=== PATIENT | female | born 1950 | race African-American/Black ===

== ENCOUNTER 2016-10-02 10:34 | Inpatient (IN) ==
--- NOTE | 2016-10-02 11:20 | Emergency Department Note ---
Arrival - Arrival Chief Complaint: Non-Specific Stated Complaint: BLOOD TOO THIN ED Nursing Triage Note: pt states that she had blood drawn yesterday at [facility] and was told that blood was too thin and to come to er Mode of Arrival: Wheelchair Limitations: No Limitations Source: Patient, Family Time Seen by Provider: 10/02/16 10:56 - History of Present Illness HPI Narrative: This is a 66-year-old black female who states that she had blood drawn yesterday at [facility] and was told that her blood was too thin. Patient takes Coumadin and her last dose was this last Saturday night. She is been on increased dose for 1 week of Coumadin because her INR was too high. Patient has been diagnosed with Mycobacterium avium and is currently on 6 different antibiotics for that. Onset (ago): day(s) (1) Allergies/Adverse Reactions: Allergies Allergy/AdvReac Type Severity Reaction Status Date / Time No Known Allergies Allergy Verified 09/12/14 10:02 Home Medications: Home Medications Medication Instructions Recorded Confirmed Type Cilostazol [Pletal] 100 mg PO BID 09/12/14 10/02/16 History Ergocalciferol (Vitamin D2) 50,000 unit PO FR 09/12/14 10/02/16 History [Vitamin D2] Gabapentin Cap/Tab [Neurontin 300 mg PO TID 09/12/14 10/02/16 History Cap/Tab] Meloxicam [Mobic] 7.5 mg PO DAILY 09/12/14 10/02/16 History Omeprazole [Prilosec] 20 mg PO DAILY 09/12/14 10/02/16 History levETIRAcetam TAB [Keppra Tab] 250 mg PO BID 09/12/14 10/02/16 History Aspirin EC Tab 81 mg PO DAILY 10/02/16 10/02/16 History Atorvastatin [Lipitor] 40 mg PO BEDTIME 10/02/16 10/02/16 History Ethambutol HCl 1,200 mg PO DAILY 10/02/16 10/02/16 History Ferrous Sulfate 325 mg PO BID 10/02/16 10/02/16 History Levothyroxine Tab [Synthroid Tab] 125 mcg PO DAILY 10/02/16 10/02/16 History Losartan Potassium 50 mg PO DAILY 10/02/16 10/02/16 History Rifampin Cap [Rifadin Cap] 600 mg PO DAILY 10/02/16 10/02/16 History Warfarin Sodium 2.5 mg PO MOWEFR 10/02/16 10/02/16 History Warfarin Sodium 10 mg PO SUTUTHSA 10/02/16 10/02/16 History amLODIPine [Norvasc] 10 mg PO DAILY 10/02/16 10/02/16 History hydroCHLOROthiazide 25 mg PO DAILY 10/02/16 10/02/16 History [Hydrochlorothiazide] rOPINIRole [Requip] 1 mg PO BEDTIME 10/02/16 10/02/16 History Review of System - Review of System 12 point system: reviewed and no additional remarkable complaints except as stated - Review of System Constitutional: Present: as per HPI. Absent: fever Neurological: Present: as per HPI. Absent: headache Medical,Surgical,& Family Hx - Medical History Cardio: History of: Hypertension, Valvular Heart Disease (status post aortic and mitral valve) Neurology: History of: Seizures Endocrine: History of: Diabetes Mellitus (NIDDM), Thyroid Disorder ( THYROIDECTOMY) Rheumatology: History of;: Rheumatological Problems Respiratory: History of: Respiratory Problems (Mycobacterium Avium) Genitourinary: History of: Recurring Urinary Tract Infections, Problems ( renal failure in the past) - Family History Family History: Reports;: Family Diabetes, Family Heart Disease, Family Hypertension, Family Stroke - Social History Smoking Status: Current every day smoker Frequency of Alcohol Use: None Type of Drug Use: None Exam Physical Examination: - General General appearance: [alert, in mild distress] - Head Head exam: [Present: atraumatic, normocephalic, normal inspection] - Eye Eye exam: [Present: normal appearance, PERRL, EOMI] - ENT ENT exam: [Present: normal exam, normal oropharynx, mucous membranes moist, TM' s normal bilaterally, normal external ear exam] - Neck Neck exam: [Present: normal inspection, full ROM, trachea midline] - Chest Chest inspection: [Present: normal inspection, symmetric chest wall rise] - Respiratory Respiratory exam: [Present: normal lung sounds bilaterally] - Cardiovascular Cardiovascular exam: [Present: regular rate, normal rhythm, normal heart sounds] - Abdominal Exam Abdominal exam: [Present: soft, normal bowel sounds] - Extremities Exam Extremities exam: [Present: normal inspection, full ROM] - Back Exam Back exam: [Present: normal inspection, full ROM] - Neurological Exam Neurological exam: [Present: alert, oriented X3] - Psychiatric Psychiatric exam: [Present: normal affect, normal mood] - Skin Skin exam: [Present: warm, dry, intact, normal color] Vital Signs: Vital Signs Temperature 96.1 F L 10/02/16 10:41 Pulse Rate 97 H 10/02/16 10:41 Respiratory Rate 18 10/02/16 10:41 Blood Pressure 135/81 10/02/16 10:41 O2 Sat by Pulse Oximetry 91 L 10/02/16 10:41 Course - Consultations Consultation #1: Spoke with JHON Nelson from Hospital services at 1300 and he will see the patient in the ER. Time: 13:00 Results - Labs CBC & BMP: 10/02/16 11:22 10/02/16 11:22 Disposition Clinical Impression: Coagulopathy, Electrolyte imbalance Case discussed with: patient, patient's family Disposition: Still a Patient Condition: Stable
[2016-10-02 11:35] LABS: Basophils # 0.1 10*3/uL (0.0-0.2); Basophils % 0.4 % (0.0-0.8); Eosinophils % 0.1 % (0.00-10.9); Hematocrit 27.9 VOL% (35.7-47.0); Hemoglobin 10.1 GM/DL (12.0-16.0); Immature Granulocytes % 3.2 %; Immature Granulocytes Absolute 0.54 #; Lymphocytes # 1.3 10*3/uL (1.4-4.0); Lymphocytes % 7.9 % (21.3-54.2); Mean Corpuscular HGB Conc 36.2 GM/DL (32-36); Mean Corpuscular Hemoglobin 32 PG (27-34); Mean Corpuscular Volume 87.2 FL (87-102); Mean Platelet Volume 8.8 FL (9.6-12.0); Monocytes # 0.9 10*3/uL (0.11-0.8); Monocytes % 5.4 % (1.7-12.7); Neutrophils # 13.8 10*3/uL (1.4-7.4); Platelet Count 443 T/CUMM (130-400); Red Cell Distribution Width 12.7 % (9.3-17.3); White Blood Count 16.7 T/CUMM (4-12)
[2016-10-02 11:56] LABS: Band Neutrophils 5 % (0-10); Lymphocytes 10 % (20-55); Microcytosis Slight; Platelet Estimate Increased; Segmented Neutrophils 79 % (50-85); Total Cells Counted 100
[2016-10-02 12:08] LABS: Albumin 2.9 G/DL (3.4-5.0); Calcium 8.8 MG/DL (8.5-10.1); Osmolality,Calculated 243.9 MOS/KG (273-304); Potassium 3.2 MMOL/L (3.5-5.1); Total Protein 7.2 G/DL (6.4-8.3)
[2016-10-02 12:49] LABS: PT Patient Result > 200.0 SECS
[2016-10-02 12:50] LABS: INR > 20.0
--- NOTE | 2016-10-02 15:37 | Hospitalist History & Physical ---
Assessment and Plan (1) Atypical mycobacterial infection of lung Status: Acute Assessment and plan: Patient has been on azithromycin 500 mg daily, [id number] mg daily and rifampin 600 mg daily. Started taking these November of last year. Going to the doctor multiple consecutive sputum have been negative for mycobacterial organisms. Patient is not having hemoptysis. He is known to Dr. Goodman Carter will therefore seek consultation with the patient is regarding these medications. This point it appears that have had an adverse effect on Coumadin. Hopefully she can be taken off these medications. I will not reorder them pending her comments. Current Visit: Yes (2) Hyponatremia Status: Acute Assessment and plan: Could be a combination of SIADH and poor oral intake. Should be on fluid restrictions at this time 1500 a day. Repeat BMP is in the morning. Encourage sodium intake with addition of buffered salt tablets taking 2 at mealtime for the next 3 days. Daily weights in the morning and watch her respiratory status were in case she goes into CHF Current Visit: Yes (3) Hypokalemia Status: Acute Assessment and plan: Supplement potassium per report per protocol with potassium chloride packets serum potassium of 3.5 mmol/L Current Visit: Yes (4) Coumadin toxicity Status: Acute Assessment and plan: Withhold Coumadin for now repeat INR every morning. Consultation with hematology to comment on use of Coumadin. Dangerous to reverse the INR in the face of prosthetic valve replacement. As long as the patient is not bleeding would not intervene on this super elevated INR at this time Current Visit: Yes (5) Abdominal aortic aneurysm Status: Acute Current Visit: Yes (6) Abdominal aortic aneurysm Status: Acute Assessment and plan: Patient follows with Dr. Brito here locally. Will consult him for attention to this issue. I am not aware of the dimensions of the abdominal aortic aneurysm. Hopefully is noted critical size. Current Visit: Yes (7) Moderate protein-calorie malnutrition Status: Acute Current Visit: Yes History of Present Illness Chief complaint: Blood is too thin History of present illness: Ms. Vasquez is a 66 year old female who states that she had blood drawn yesterday at [facility] and was told that her blood was too thin. Patient takes Coumadin and her last dose was this last Saturday night. She is been on increased dose for 1 week of Coumadin because her INR was too high. Patient has been diagnosed with Mycobacterium avium and is currently on 6 different antibiotics for that. Actually patient is taking ethambutol 3 tablets rifampin 2 tablets and azithromycin 1 tablet every morning (this supposed to be 3500 mg of ethambutol, 2300 mg of rifampin and 1500 mg of azithromycin making it 6 tablets). Patient is on Coumadin for aortic valve replacement. 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 At the time of starting treatment patient was having hemoptysis. I am informed that she has had multiple negative sputum times reading to this month. Pudendal assessment was done in August. Patient has been under the care of Dr. Gayle for the infection. Looked at the medication to have azithromycin is missing in the bag and I am not certain if she has been taking. So obviously super elevated international normalizing ratio is a secondary to combination of Coumadin rifampin and azithromycin. This patient is also on cilostazol, meloxicam and aspirin. She recently has been discovered to have an abdominal aortic aneurysm which I believe the vascular surgeon locally is looking at. Supposed to been seen by the vascular surgeon today. Also supposed to be seen by Dr. Gayle on follow-up of these pulmonary infection. She has profound hyponatremia likely secondary to chronic pneumonias as well as poor oral intake. Home Medications Medication Instructions Recorded Confirmed Type Cilostazol [Pletal] 100 mg PO BID 09/12/14 10/02/16 History Ergocalciferol (Vitamin D2) 50,000 unit PO FR 09/12/14 10/02/16 History [Vitamin D2] Gabapentin Cap/Tab [Neurontin 300 mg PO TID 09/12/14 10/02/16 History Cap/Tab] Meloxicam [Mobic] 7.5 mg PO DAILY 09/12/14 10/02/16 History Omeprazole [Prilosec] 20 mg PO DAILY 09/12/14 10/02/16 History levETIRAcetam TAB [Keppra Tab] 250 mg PO BID 09/12/14 10/02/16 History Aspirin EC Tab 81 mg PO DAILY 10/02/16 10/02/16 History Atorvastatin [Lipitor] 40 mg PO BEDTIME 10/02/16 10/02/16 History Ethambutol HCl 1,200 mg PO DAILY 10/02/16 10/02/16 History Ferrous Sulfate 325 mg PO BID 10/02/16 10/02/16 History Levothyroxine Tab [Synthroid Tab] 125 mcg PO DAILY 10/02/16 10/02/16 History Losartan Potassium 50 mg PO DAILY 10/02/16 10/02/16 History Rifampin Cap [Rifadin Cap] 600 mg PO DAILY 10/02/16 10/02/16 History Warfarin Sodium 2.5 mg PO MOWEFR 10/02/16 10/02/16 History Warfarin Sodium 10 mg PO SUTUTHSA 10/02/16 10/02/16 History amLODIPine [Norvasc] 10 mg PO DAILY 10/02/16 10/02/16 History hydroCHLOROthiazide 25 mg PO DAILY 10/02/16 10/02/16 History [Hydrochlorothiazide] rOPINIRole [Requip] 1 mg PO BEDTIME 10/02/16 10/02/16 History Allergies Allergy/AdvReac Type Severity Reaction Status Date / Time No Known Allergies Allergy Verified 09/12/14 10:02 Medical,Surgical,& Family Hx - Medical History Cardio: History of: Hypertension, Valvular Heart Disease (status post aortic and mitral valve) Neurology: History of: Seizures Endocrine: History of: Diabetes Mellitus (NIDDM), Thyroid Disorder ( THYROIDECTOMY) Rheumatology: History of;: Rheumatological Problems Respiratory: History of: Respiratory Problems (Mycobacterium Avium) Genitourinary: History of: Recurring Urinary Tract Infections, Problems ( renal failure in the past) - Family History Family History: Reports;: Family Diabetes, Family Heart Disease, Family Hypertension, Family Stroke - Social History Smoking Status: Current every day smoker Frequency of Alcohol Use: None Type of Drug Use: None Review of systems: 12 point system assessment was done. What stands out is patient's abnormal labs that she comes in with hyponatremia and super elevated international normalized normalizing ratio. There is no active bleeding at this time. Patient is underweight. She is not having any coughing at this time no fevers but she has had poor appetite at home other than the chief complaint history of presenting illness and past medical history nothing else is panning out on review of system Exam - Constitutional General appearance: no acute distress, under weight, other (No fevers) - Head Head exam: Present: normal inspection, normocephalic, atraumatic - Eye Eye exam: Present: EOMI, other (Anicteric sclera no conjunctival petechiae) Pupils: Present: BETITO - ENT ENT exam: Present: normal exam, normal oropharynx - Neck Neck exam: Present: normal inspection, other (Neck is supple midline trachea no lymphadenopathy no thyromegaly) - Respiratory Respiratory exam: Present: clear to auscultation bilaterally, other (Bibasilar crackles no wheezing no on amphophory) - Cardiovascular Cardiovascular exam: Present: regular rate and rhythm, other (Patient has been prosthetic valve sound in the aortic site sounds like a [place] valve) - GI/Abdominal GI/Abdominal exam: Present: normal bowel sounds, soft, other (Scaphoid abdomen no hepatosplenomegaly) - Extremities Exam Extremities exam: Present: normal inspection, full ROM - Back Exam Back exam: Present: normal inspection - Neurological Exam Neurological exam: Present: alert, oriented X3, CN II-XII intact - Psychiatric Psychiatric exam: Present: normal affect, normal mood - Skin Skin exam: Present: normal color, warm, dry Results - Labs CBC & BMP: 10/02/16 11:22 10/02/16 11:22 Lab Results: I have reviewed the past 24 hour labs (Noted leukocytosis of 16.7 machine differential is unremarkable. Platelet count of 443 hemoglobin 10.1 MCV of 87 (normal) she does have thrombocytosis. Noted INR of greater than 20. We will 122 potassium 3.2 chloride of 87 obviousl bicarbonate of 23 anion gap of 15.2 likely driven by the hyponatremia AST 24 ALT 12 total bilirubin of 1 alkaline phosphatase 88 she is hypo-osmole at 243 we will obtain measured osmolality.)
[2016-10-02] MEDS: ATORVASTATIN 40 MG TABLET PO SCH (21:02)
[2016-10-02] MEDS: rOPINIRole 1 MG TABLET PO SCH (21:02)
[2016-10-02] MEDS: GABAPENTIN 300 MG CAPSULE PO SCH (21:02)
[2016-10-02] MEDS: levETIRAcetam 250 MG TABLET PO SCH (21:02)
[2016-10-02] MEDS: SODIUM CHLORIDE 1 GM TABLET PO SCH (21:02)
[2016-10-02] MEDS: FERROUS SULFATE 325 MG TABLET PO SCH (21:02)
[2016-10-03 07:35] LABS: PT Patient Result 102.4 SECS
[2016-10-03 07:38] LABS: INR 8.4
[2016-10-03] MEDS: GABAPENTIN 300 MG CAPSULE PO SCH ×3 (09:42→21:10)
[2016-10-03] MEDS: levETIRAcetam 250 MG TABLET PO SCH ×2 (09:43→21:11)
[2016-10-03] MEDS: LOSARTAN 50 MG TABLET PO SCH (09:43)
[2016-10-03] MEDS: PANTOPRAZOLE 40 MG TABLET PO SCH (09:43)
[2016-10-03] MEDS: LEVOTHYROXINE 125 MCG TABLET PO SCH (09:43)
[2016-10-03] MEDS: FERROUS SULFATE 325 MG TABLET PO SCH ×2 (09:43→21:11)
[2016-10-03] MEDS: amLODIPine 10 MG TABLET PO SCH (09:43)
[2016-10-03] MEDS: SODIUM CHLORIDE 1 GM TABLET PO SCH ×3 (09:43→21:11)
--- NOTE | 2016-10-03 11:21 | XRay Report ---
XR chest 1V Indication: Pneumonia, atypical mycobacteria Comparison: Chest x-ray dated September 17, 2014 Technique: Single frontal view of the chest Findings: Cardiomediastinal silhouette is stable in configuration status post cardiac valve replacement. Chronic change of the lungs without focal consolidation, pleural effusion, or pneumothorax. Visualized osseous and surrounding soft tissue structures appear grossly unchanged. Possible clips again project over the neck base IMPRESSION: No acute cardiopulmonary process demonstrated. PROCEDURE INTERPRETED AT [facility] DEPARTMENT OF RADIOLOGY Final Report Signed by: Dr Heraclio Escalona
--- NOTE | 2016-10-03 11:29 | Infectious Disease Consult ---
Assessment and Plan (1) Atypical mycobacterial infection of lung Status: Acute Assessment and plan: Chronic MAC infection of the lung. She has been on combination therapy for almost 10 months. Only recently she has been off the azithromycin for unclear reasons but lately she has been on the rifampin and ethambutol. Monthly sputum samples are being sent to [facility] and we have not gotten any results in our office recently so we will need to track down those results. The patient was actually to see me in the office yesterday. Recommendations: The patient needs continued therapy for her back infection and as was being done before the warfarin dose will need to be adjusted accordingly and the INR monitored while she is on her rifampin and ethambutol and azithromycin. Because of her quite extreme weight loss the doses of the rifampin and ethambutol may have to be recalculated as it is weight based. I have ordered azithromycin 500 mg daily, ethambutol 800 mg daily, and rifampin 600 mg daily. The plan is for the patient to continue therapy for 12 months after the last positive sputum sample from [facility]. Thank you very much for the consult. Will follow. Discussed with Dr. Barbour. Current Visit: Yes (2) Coumadin toxicity Status: Acute Current Visit: Yes (3) Moderate protein-calorie malnutrition Status: Acute Current Visit: Yes (4) Hypertension Status: Chronic Current Visit: No History of Present Illness Chief complaint: MAC lung disease History of present illness: Ms. Vasquez is a 66 year old female This is a patient of been treating in the office for MAC lung disease since last April. I initially saw her at rest last year when she was admitted with pneumonia and severe hemoptysis. It was confirmed that she had MAC lung infection. She did actually been diagnosed with this MAC infection a few years prior but was never treated. We started combination therapy for her last summer with rifampin and azithromycin and ethambutol and she did well. Towards the end of the year the sputum's came negative for acid-fast bacilli. We have been monitoring the sputum is monthly and the plan was for her to continue combination therapy until sputums for 12 consecutive months and negative for AFB. The patient had been adherent with her medications however daughter says she noticed recently that she has not been on the azithromycin and she is not sure when was the last time she took this medicine. Throughout all this time the patient has been on warfarin for prosthetic heart valve. The patient was called into the hospital because routine INR monitoring came back at more than 20. Incidentally the patient was noted to be quite wasted and her daughter admits that the patient has lost about 40 pounds over the past 2 months. She essentially has almost stopped eating. The cause for this is not clear. Home Medications Medication Instructions Recorded Confirmed Type Cilostazol [Pletal] 100 mg PO BID 09/12/14 10/02/16 History Ergocalciferol (Vitamin D2) 50,000 unit PO FR 09/12/14 10/02/16 History [Vitamin D2] Gabapentin Cap/Tab [Neurontin 300 mg PO TID 09/12/14 10/02/16 History Cap/Tab] Meloxicam [Mobic] 7.5 mg PO DAILY 09/12/14 10/02/16 History Omeprazole [Prilosec] 20 mg PO DAILY 09/12/14 10/02/16 History levETIRAcetam TAB [Keppra Tab] 250 mg PO BID 09/12/14 10/02/16 History Aspirin EC Tab 81 mg PO DAILY 10/02/16 10/02/16 History Atorvastatin [Lipitor] 40 mg PO BEDTIME 10/02/16 10/02/16 History Ethambutol HCl 1,200 mg PO DAILY 10/02/16 10/02/16 History Ferrous Sulfate 325 mg PO BID 10/02/16 10/02/16 History Levothyroxine Tab [Synthroid Tab] 125 mcg PO DAILY 10/02/16 10/02/16 History Losartan Potassium 50 mg PO DAILY 10/02/16 10/02/16 History Potassium Chloride [Klor-Con M20] 20 meq PO DAILY 10/02/16 10/02/16 History Rifampin Cap [Rifadin Cap] 600 mg PO DAILY 10/02/16 10/02/16 History Warfarin Sodium 2.5 mg PO MOWEFR 10/02/16 10/02/16 History Warfarin Sodium 10 mg PO SUTUTHSA 10/02/16 10/02/16 History amLODIPine [Norvasc] 10 mg PO DAILY 10/02/16 10/02/16 History hydroCHLOROthiazide 25 mg PO DAILY 10/02/16 10/02/16 History [Hydrochlorothiazide] rOPINIRole [Requip] 1 mg PO BEDTIME 10/02/16 10/02/16 History Allergies Allergy/AdvReac Type Severity Reaction Status Date / Time No Known Allergies Allergy Verified 09/12/14 10:02 12 point system: reviewed and no additional remarkable complaints except as stated (Per HPI, patient last had hemoptysis about 2 months ago and it was mild) Medical,Surgical,& Family Hx - Medical History Cardio: History of: Hypertension, Valvular Heart Disease (status post aortic and mitral valve) Neurology: History of: Seizures Endocrine: History of: Diabetes Mellitus (NIDDM), Thyroid Disorder ( THYROIDECTOMY) Rheumatology: History of;: Rheumatological Problems Respiratory: History of: Bronchitis, Pneumonia, Respiratory Problems ( Mycobacterium Avium) Genitourinary: History of: Recurring Urinary Tract Infections, Problems ( renal failure in the past) Gastrointestinal: History of: GERD - Surgical History Cardiac Surgeries: Sugical HX of: Cardiac Catheterization Reproductive Surgeries: Surgical HX of;: Hysterectomy Orthopedic Surgeries: Surgical HX of;: Orthopedic Surgery (Left AKA) - Family History Family History: Reports;: Family Diabetes (mother), Family Hypertension (mother) Denies;: Family Anesthesia Reaction, Family Cancer, Family Heart Disease, Family Hematology, Family Psychiatric Problems, Family Stroke, Additional Family History - Social History Smoking Status: Current every day smoker Frequency of Alcohol Use: None Type of Drug Use: None Infectious Disease Exam H&P - Constitutional Vitals: Vital Signs Temp Pulse Resp BP Pulse Ox 98.1 F 93 H 18 103/50 99 10/03/16 07:30 10/03/16 07:30 10/03/16 07:30 10/03/16 07:30 10/03/16 07:30 Intake and Output 10/02/16 10/03/16 10/03/16 23:59 07:59 15:59 Intake Total 240 / 240 0 / 0 Output Total 200 / 200 Balance 240 / 240 -200 / -200 Intake: Oral 240 / 240 0 / 0 Output: Urine 200 / 200 Other: Voiding Method Bedpan Toilet # Voids 1 # Bowel Movements 0 0 Weight 51.256 kg Exam: General: Patient relatively comfortable, but she is rather wasted compared to when I last saw her last March HEENT: Mucous membranes pink and moist, anicteric acyanotic, BETITO, no oropharyngeal exudates Neck: Supple, no thyroid gland enlargement, no lymphadenopathy Respiratory system: Breath sounds vesicular, no crepitations or wheezes Cardiovascular: Normal S1 and S2, no murmurs appreciated Abdomen: Normal bowel sounds, soft nontender throughout, no organomegaly or mass Genitourinary: No suprapubic pain or bladder distention Extremities: no edema, healed left AKA stump Skin: No rash Reports - Labs CBC & BMP: 10/02/16 11:22 10/02/16 11:22 Labs: Laboratory Results - last 24 hr 10/03/16 06:40 INR 8.4 H* PT Patient/Control Mix 102.4 D - Diagnostic Findings Procedure: Chest x-ray: image reviewed by me, report reviewed by me (No consolidation)
--- NOTE | 2016-10-03 11:39 | Vascular Surgery Consult Note ---
History of Present Illness Chief complaint: mesemteric aneurysm History of present illness: Ms. Vasquez is a 66 year old female Cristiane Vasquez is a 66-year-old woman I met in the distant past when treated her probably for right femoral-popliteal arterial occlusive disease. My last recorded visit was sometime in 2008 and I do not have any information further on that. 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 There is also extensive atherosclerotic disease involving the aorta and the superior mesenteric and renal arteries with subtotal occlusion of the left iliac system she is previously undergone left above-knee amputation soon for ischemia I do not believe I was involved in her care at that time. He did not right obvious superior mesenteric artery aneurysm is reaching a significant size but internal communications writer significance is the fact that it was seen and is visible on the CAT scan done in 2011 and at that time was 21 mm in size so we have basically a very stable superior mesenteric artery aneurysm. There certainly is some risk of this aneurysm rupturing in the future but I am also questioning whether the risk of treating it is greater in view of her other ongoing medical problems. She is chronically anticoagulated for what may be aortic and mitral valve prosthesis she had some type of prosthesis placed in 1999 for that and had to be replaced in 2010 due to what her daughter describes a staph infection. I do not know which of these valves is actually in place on note on the chest x-ray I can only see one ring suggesting a prosthetic valve. We would need to look back in her old records from when Dr. Zapata did her operations to determine which valves have actually been replaced. At this time my thoughts are that we should follow her rather closely let her get fully cleared of her Mycobacterium disease so determine what the status of her heart valves are and what risk would be involved in stopping anticoagulation to repair this aneurysm. Looking at it I am not convinced that an endovascular approach she is going to be feasible as it involves the several branches of the superior mesenteric artery that I do not believe we can afford to sacrifice. Home Medications Medication Instructions Recorded Confirmed Type Cilostazol [Pletal] 100 mg PO BID 09/12/14 10/02/16 History Ergocalciferol (Vitamin D2) 50,000 unit PO FR 09/12/14 10/02/16 History [Vitamin D2] Gabapentin Cap/Tab [Neurontin 300 mg PO TID 09/12/14 10/02/16 History Cap/Tab] Meloxicam [Mobic] 7.5 mg PO DAILY 09/12/14 10/02/16 History Omeprazole [Prilosec] 20 mg PO DAILY 09/12/14 10/02/16 History levETIRAcetam TAB [Keppra Tab] 250 mg PO BID 09/12/14 10/02/16 History Aspirin EC Tab 81 mg PO DAILY 10/02/16 10/02/16 History Atorvastatin [Lipitor] 40 mg PO BEDTIME 10/02/16 10/02/16 History Ethambutol HCl 1,200 mg PO DAILY 10/02/16 10/02/16 History Ferrous Sulfate 325 mg PO BID 10/02/16 10/02/16 History Levothyroxine Tab [Synthroid Tab] 125 mcg PO DAILY 10/02/16 10/02/16 History Losartan Potassium 50 mg PO DAILY 10/02/16 10/02/16 History Potassium Chloride [Klor-Con M20] 20 meq PO DAILY 10/02/16 10/02/16 History Rifampin Cap [Rifadin Cap] 600 mg PO DAILY 10/02/16 10/02/16 History Warfarin Sodium 2.5 mg PO MOWEFR 10/02/16 10/02/16 History Warfarin Sodium 10 mg PO SUTUTHSA 10/02/16 10/02/16 History amLODIPine [Norvasc] 10 mg PO DAILY 10/02/16 10/02/16 History hydroCHLOROthiazide 25 mg PO DAILY 10/02/16 10/02/16 History [Hydrochlorothiazide] rOPINIRole [Requip] 1 mg PO BEDTIME 10/02/16 10/02/16 History Allergies Allergy/AdvReac Type Severity Reaction Status Date / Time No Known Allergies Allergy Verified 09/12/14 10:02 Medical,Surgical,& Family Hx - Medical History Cardio: History of: Hypertension, Valvular Heart Disease (status post aortic and mitral valve) Neurology: History of: Seizures Endocrine: History of: Diabetes Mellitus (NIDDM), Thyroid Disorder ( THYROIDECTOMY) Rheumatology: History of;: Rheumatological Problems Respiratory: History of: Bronchitis, Pneumonia, Respiratory Problems ( Mycobacterium Avium) Genitourinary: History of: Recurring Urinary Tract Infections, Problems ( renal failure in the past) Gastrointestinal: History of: GERD - Surgical History Cardiac Surgeries: Sugical HX of: Cardiac Catheterization Reproductive Surgeries: Surgical HX of;: Hysterectomy Orthopedic Surgeries: Surgical HX of;: Orthopedic Surgery (Left AKA) - Family History Family History: Reports;: Family Diabetes (mother), Family Hypertension (mother) Denies;: Family Anesthesia Reaction, Family Cancer, Family Heart Disease, Family Hematology, Family Psychiatric Problems, Family Stroke, Additional Family History - Social History Smoking Status: Current every day smoker Frequency of Alcohol Use: None Type of Drug Use: None Exam - Constitutional Vitals: Period Temp Pulse Resp BP Sys/Gonzalez Pulse Ox Last 24 Hr 97.8 F-98.7 F 63-103 16-20 98-123/50-69 96-100 Results - Labs CBC & BMP: 10/02/16 11:22 10/02/16 11:22
[2016-10-03] MEDS: RIFAMPIN 300 MG CAPSULE PO SCH (14:01)
[2016-10-03] MEDS: AZITHROMYCIN 250 MG TABLET PO SCH (14:01)
[2016-10-03] MEDS: ETHAMBUTOL 400 MG TABLET PO SCH (14:01)
--- NOTE | 2016-10-03 14:35 | Hospitalist Progress Note ---
Assessment and Plan (1) Atypical mycobacterial infection of lung Status: Acute Assessment and plan: Patient has been on azithromycin 500 mg daily, [id number] mg daily and rifampin 600 mg daily. Started taking these November of last year. Going to the doctor multiple consecutive sputum have been negative for mycobacterial organisms. Patient is not having hemoptysis. He is known to Dr. Goodman Carter will therefore seek consultation with the patient is regarding these medications. This point it appears that have had an adverse effect on Coumadin. Hopefully she can be taken off these medications. I will not reorder them pending her comments. However I will go with recommendation from infectious disease regarding continued use of his antibiotic. Current Visit: Yes (2) Hyponatremia Status: Acute Assessment and plan: Could be a combination of SIADH and poor oral intake. Should be on fluid restrictions at this time 1500 a day. Repeat BMP is in the morning. Encourage sodium intake with addition of buffered salt tablets taking 2 at mealtime for the next 3 days. Daily weights in the morning and watch her respiratory status were in case she goes into CHF Current Visit: Yes (3) Hypokalemia Status: Acute Assessment and plan: Supplement potassium per report per protocol with potassium chloride packets serum potassium of 3.5 mmol/L Current Visit: Yes (4) Coumadin toxicity Status: Acute Assessment and plan: Withhold Coumadin for now repeat INR every morning. Consultation with hematology to comment on use of Coumadin. Dangerous to reverse the INR in the face of prosthetic valve replacement. As long as the patient is not bleeding would not intervene on this super elevated INR at this time Current Visit: Yes (5) Abdominal aortic aneurysm Status: Acute Current Visit: Yes (6) Abdominal aortic aneurysm Status: Acute Assessment and plan: Patient follows with Dr. Neil here locally. Will consult him for attention to this issue. I am not aware of the dimensions of the abdominal aortic aneurysm. Hopefully is noted critical size. Current Visit: Yes (7) Moderate protein-calorie malnutrition Status: Acute Current Visit: Yes Hospitalist: Subjective Interval history: Patient has been seen interviewed and examined and chart has been reviewed. Patient is admitted to the hospital yesterday with Coumadin toxicity INR above 20. Repeated this morning is 8.4. Patient is on Coumadin for valvular replacement she has good prosthetic valve at both aortic and mitral valve. Having talked to Dr. Gayle today this patient has lost a lot of weight. Is obviously moderate to severe protein calorie deficiency. Denies any hemoptysis she does have history of a typical mycobacterial infection she has been on azithromycin 500 mg daily albuterol 1500 mg daily and rifampin 600 mg daily. In these antibiotics alongside the Coumadin is caused it is elevated INR obviously. The treatment for the atypical mycobacterial was started in November last year as per opinion of Dr. Carter she needs to continue these medications until she verifies that the sputum have been negative of late. His daughter states that they have been negative however the needed information is with [facility]. Because of this weight loss is unclear but is noted that the patient has not been eating at home. She has no known malignancy and in the lower respiratory infection is known to be typical mycobacterial i.e. mycobacteria avium complex. Exam - Constitutional Vitals: Period Temp Pulse Resp BP Sys/Gonzalez Pulse Ox Last 24 Hr 97.8 F-98.7 F 85-103 16-20 98-123/50-69 96-100 General appearance: normal weight, no acute distress - Head Head exam: Present: normal inspection, normocephalic - Eye Eye exam: Present: EOMI Pupils: Present: BETITO - ENT ENT exam: Present: normal exam - Neck Neck exam: Present: normal inspection, other (No regional adenopathy) - Respiratory Respiratory exam: Present: clear to auscultation bilaterally - Cardiovascular Cardiovascular exam: Present: regular rate and rhythm - GI/Abdominal GI/Abdominal exam: Present: normal bowel sounds, other - Extremities Exam Extremities exam: Present: full ROM - Back Exam Back exam: Present: normal inspection - Neurological Exam Neurological exam: Present: alert, oriented X3, CN II-XII intact - Psychiatric Psychiatric exam: Present: normal affect, normal mood - Skin Skin exam: Present: normal color, warm, dry Results - Labs CBC & BMP: 10/02/16 11:22 10/02/16 11:22 Lab Results: I have reviewed the past 24 hour labs
[2016-10-03 15:39] LABS: Calcium 8.4 MG/DL (8.5-10.1)
[2016-10-03 15:40] LABS: Magnesium 1.9 MG/DL (1.8-2.4); Osmolality,Calculated 268.5 MOS/KG (273-304); Potassium 3.2 MMOL/L (3.5-5.1)
--- NOTE | 2016-10-03 16:11 | Hematology Consult ---
History of Present Illness - Consult Narrative History of present illness: This is a chart review note only. Ms. Vasquez is a 66 year old female with a prosthetic heart valve who is on Coumadin. Patient was admitted with a supratherapeutic INR. The reported INR was greater than 20 based on laboratory findings here. It is thought that this is secondary to her extensive antibiotic therapy. Hematology was consulted to make recommendations on her Coumadin. Given that this is for a prosthetic heart valve, I will defer any recommendations about anticoagulation to Cardiology. I do not see any other issues for Hematology to address at this time. If there are any other issues that I may be of assistance with, please feel free to call me. CC: Nasir Barbour MD - Home Medications and Allergies Home Medications: Home Medications Medication Instructions Recorded Confirmed Type Cilostazol [Pletal] 100 mg PO BID 09/12/14 10/02/16 History Ergocalciferol (Vitamin D2) 50,000 unit PO FR 09/12/14 10/02/16 History [Vitamin D2] Gabapentin Cap/Tab [Neurontin 300 mg PO TID 09/12/14 10/02/16 History Cap/Tab] Meloxicam [Mobic] 7.5 mg PO DAILY 09/12/14 10/02/16 History Omeprazole [Prilosec] 20 mg PO DAILY 09/12/14 10/02/16 History levETIRAcetam TAB [Keppra Tab] 250 mg PO BID 09/12/14 10/02/16 History Aspirin EC Tab 81 mg PO DAILY 10/02/16 10/02/16 History Atorvastatin [Lipitor] 40 mg PO BEDTIME 10/02/16 10/02/16 History Ethambutol HCl 1,200 mg PO DAILY 10/02/16 10/02/16 History Ferrous Sulfate 325 mg PO BID 10/02/16 10/02/16 History Levothyroxine Tab [Synthroid Tab] 125 mcg PO DAILY 10/02/16 10/02/16 History Losartan Potassium 50 mg PO DAILY 10/02/16 10/02/16 History Potassium Chloride [Klor-Con M20] 20 meq PO DAILY 10/02/16 10/02/16 History Rifampin Cap [Rifadin Cap] 600 mg PO DAILY 10/02/16 10/02/16 History Warfarin Sodium 2.5 mg PO MOWEFR 10/02/16 10/02/16 History Warfarin Sodium 10 mg PO SUTUTHSA 10/02/16 10/02/16 History amLODIPine [Norvasc] 10 mg PO DAILY 10/02/16 10/02/16 History hydroCHLOROthiazide 25 mg PO DAILY 10/02/16 10/02/16 History [Hydrochlorothiazide] rOPINIRole [Requip] 1 mg PO BEDTIME 10/02/16 10/02/16 History Allergies/Adverse Reactions: Allergies Allergy/AdvReac Type Severity Reaction Status Date / Time No Known Allergies Allergy Verified 09/12/14 10:02 Medical,Surgical,& Family Hx - Medical History Cardio: History of: Hypertension, Valvular Heart Disease (status post aortic and mitral valve) Neurology: History of: Seizures Endocrine: History of: Diabetes Mellitus (NIDDM), Thyroid Disorder ( THYROIDECTOMY) Rheumatology: History of;: Rheumatological Problems Respiratory: History of: Bronchitis, Pneumonia, Respiratory Problems ( Mycobacterium Avium) Genitourinary: History of: Recurring Urinary Tract Infections, Problems ( renal failure in the past) Gastrointestinal: History of: GERD - Surgical History Cardiac Surgeries: Sugical HX of: Cardiac Catheterization Reproductive Surgeries: Surgical HX of;: Hysterectomy Orthopedic Surgeries: Surgical HX of;: Orthopedic Surgery (Left AKA) - Family History Family History: Reports;: Family Diabetes (mother), Family Hypertension (mother) Denies;: Family Anesthesia Reaction, Family Cancer, Family Heart Disease, Family Hematology, Family Psychiatric Problems, Family Stroke, Additional Family History - Social History Smoking Status: Current every day smoker Frequency of Alcohol Use: None Type of Drug Use: None Exam - Constitutional Vitals: Period Temp Pulse Resp BP Sys/Gonzalez Pulse Ox Last 24 Hr 97.8 F-98.7 F 85-103 16-20 98-123/50-69 96-100 Results - Labs CBC & BMP: 10/02/16 11:22 10/03/16 11:07
[2016-10-03] MEDS: POTASSIUM CHLORIDE 20 MEQ TABLET PO PRN ×2 (19:38→21:11)
[2016-10-03] MEDS: ATORVASTATIN 40 MG TABLET PO SCH (21:10)
[2016-10-03] MEDS: rOPINIRole 1 MG TABLET PO SCH (21:11)
[2016-10-04] MEDS: POTASSIUM CHLORIDE 20 MEQ TABLET PO PRN ×2 (00:44→03:15)
[2016-10-04 09:50] LABS: INR 1.9; PT Patient Result 20.9 SECS
[2016-10-04] MEDS: AZITHROMYCIN 250 MG TABLET PO SCH (09:55)
[2016-10-04] MEDS: amLODIPine 10 MG TABLET PO SCH (09:56)
[2016-10-04] MEDS: FERROUS SULFATE 325 MG TABLET PO SCH ×2 (09:56→21:07)
[2016-10-04] MEDS: ETHAMBUTOL 400 MG TABLET PO SCH (09:56)
[2016-10-04] MEDS: LOSARTAN 50 MG TABLET PO SCH (09:56)
[2016-10-04] MEDS: SODIUM CHLORIDE 1 GM TABLET PO SCH ×3 (09:56→21:07)
[2016-10-04] MEDS: GABAPENTIN 300 MG CAPSULE PO SCH ×3 (09:56→21:06)
[2016-10-04] MEDS: LEVOTHYROXINE 125 MCG TABLET PO SCH (09:56)
[2016-10-04] MEDS: levETIRAcetam 250 MG TABLET PO SCH ×2 (09:56→21:07)
[2016-10-04] MEDS: RIFAMPIN 300 MG CAPSULE PO SCH (09:56)
[2016-10-04] MEDS: PANTOPRAZOLE 40 MG TABLET PO SCH (09:56)
--- NOTE | 2016-10-04 12:20 | Infectious Disease Progress ---
Assessment and Plan (1) Atypical mycobacterial infection of lung Status: Acute Assessment and plan: Chronic MAC infection of the lung. She has been on combination therapy for almost 10 months. Only recently she has been off the azithromycin for unclear reasons but lately she has been on the rifampin and ethambutol. Monthly sputum samples are being sent to [facility] and we have not gotten any results in our office recently so we will need to track down those results. Recommendations: The patient needs continued therapy for her MAC infection and as was being done before the warfarin dose will need to be adjusted accordingly and the INR monitored while she is on her rifampin and ethambutol and azithromycin. Current Visit: Yes (2) Coumadin toxicity Status: Acute Current Visit: Yes (3) Moderate protein-calorie malnutrition Status: Acute Current Visit: Yes (4) Hypertension Status: Chronic Current Visit: No Infectious Disease - PN: Subj Interval history: Patient doing fair, no fever. No cough or hemoptysis. She is back on her anti- MAC therapy. Infectious Disease Exam (PN) - Constitutional Vitals: Temp Pulse Resp BP Pulse Ox 97.6 F 80 18 123/60 93 L 10/04/16 07:46 10/04/16 07:46 10/04/16 07:46 10/04/16 07:46 10/04/16 07:46 General appearance: normal weight, no acute distress Exam: General appearance: no acute distress - Eye Eye exam: Present: EOMI. no icterus Pupils: Present: BETITO - ENT ENT exam: no oral exudates - Respiratory Respiratory exam: vesicular BS, no crepitations or wheezes - Cardiovascular Cardiovascular exam: regular rate and rhythm, no murmurs - GI/Abdominal GI/Abdominal exam: normal bowel sounds, soft, non-tender, no organomegaly or mass - Extremities Exam Extremities exam: no edema - Skin Skin exam: no rash Results - Labs CBC & BMP: 10/02/16 11:22 10/04/16 08:39 Lab Results: I have reviewed the past 24 hour labs
--- NOTE | 2016-10-04 13:32 | Event Note ---
Ms. Vasquez is in no acute distress at this time we still are not sure that she had aortic mitral Biocor mitral valves or both. I am going to ask that the staff get the records from her valve replacement surgery in 2011. As far as the mesenteric aneurysm I do not believe this needs to be acutely addressed as we clearly see a stable aneurysm since 2011. I think it be reasonable for me to follow-up in approximately [address] angiogram and we can arrange that at the time of discharge.
--- NOTE | 2016-10-04 14:26 | Hospitalist Progress Note ---
Assessment and Plan (1) Atypical mycobacterial infection of lung Status: Acute Assessment and plan: Patient has been on azithromycin 500 mg daily, [id number] mg daily and rifampin 600 mg daily. Started taking these November of last year. Going to the doctor multiple consecutive sputum have been negative for mycobacterial organisms. Patient is not having hemoptysis. He is known to Dr. Goodman Carter will therefore seek consultation with the patient is regarding these medications. This point it appears that have had an adverse effect on Coumadin. Hopefully she can be taken off these medications. I will not reorder them pending her comments. However I will go with recommendation from infectious disease regarding continued use of his antibiotic. Current Visit: Yes (2) Hyponatremia Status: Acute Assessment and plan: This is at this point improving. Could be a combination of SIADH and poor oral intake. Should be on fluid restrictions at this time 1500 a day. Repeat BMP is in the morning. Encourage sodium intake with addition of buffered salt tablets taking 2 at mealtime for the next 3 days. Daily weights in the morning and watch her respiratory status were in case she goes into CHF. Current Visit: Yes (3) Hypokalemia Status: Acute Assessment and plan: Resolved potassium 4.0 Current Visit: Yes (4) Coumadin toxicity Status: Acute Assessment and plan: INR is now down to 1.9. Will resume Coumadin at 10 mg daily at 1800 hrs. in the meantime patient is to be bridged with Lovenox 1 mg/kg (approximated dose of 60 mg subcu every 12 hours); will be targeting INR of 3.5-4.5 Current Visit: Yes (5) Moderate protein-calorie malnutrition Status: Acute Assessment and plan: Continue to encourage oral intake. Patient already looks better than the day of admission. Current Visit: Yes (6) Superior mesenteric artery aneurysm Status: Acute Assessment and plan: Plan discussion with Dr. Neil, this aneurysm is stable for the last 5 years. There is nothing that needs to be done at this point. Current Visit: Yes Hospitalist: Subjective Interval history: This patient has been seen interviewed and examined chart has been reviewed. Admitted to the hospital with Coumadin toxicity a history of a typical mycobacteriosis involving the lungs with history of treatment. The combination of warfarin with a treatment for ISAEL did influence supertherapeutic INR of greater than 20. No bleeding complications. Her INR today is has 1.9. I Will resume Coumadin 10 mg daily; patient used to use 15 mg at home. Of consulted Dr. Rigoberto Carter who is to continue azithromycin ethambutol and rifampin. Azithromycin and rifampin will affect warfarin by decreasing his clearance therefore expect INR to go up again. Also bridge with Lovenox 1 mg/kg every 12 hours until INR is above 3.5. She used to use 15 mg of warfarin before therefore she is a slow responder to warfarin genetically. Exam - Constitutional Vitals: Period Temp Pulse Resp BP Sys/Gonzalez Pulse Ox Last 24 Hr 97.6 F-98.7 F 75-87 18-21 98-123/45-68 93-100 General appearance: normal weight - Head Head exam: Present: normocephalic, atraumatic - Eye Eye exam: Present: EOMI Pupils: Present: BETITO - ENT ENT exam: Present: normal exam - Neck Neck exam: Present: normal inspection - Respiratory Respiratory exam: Present: clear to auscultation bilaterally - Cardiovascular Cardiovascular exam: Present: regular rate and rhythm - GI/Abdominal GI/Abdominal exam: Present: normal bowel sounds, soft - Extremities Exam Extremities exam: Present: other (Left AKA) - Neurological Exam Neurological exam: Present: alert, oriented X3, CN II-XII intact - Psychiatric Psychiatric exam: Present: normal affect, normal mood - Skin Skin exam: Present: normal color, warm, dry Results - Labs CBC & BMP: 10/02/16 11:22 10/04/16 08:39 Lab Results: I have reviewed the past 24 hour labs (INR 1.9. Patient will be given Lovenox 60 mg subcu every 12 hours. This does start start warfarin 10 mg p.o. at 1800 hrs. every day. Continue PT/INRs. Target INR of 3.5-4.5.)
[2016-10-04] MEDS: ENOXAPARIN 60 MG/0.6 ML SYRINGE SUBCUT SCH (15:56)
[2016-10-04] MEDS ORDERED: WARFARIN 10 MG TABLET PO SCH (18:00)
[2016-10-04] MEDS: rOPINIRole 1 MG TABLET PO SCH (21:07)
[2016-10-04] MEDS: ATORVASTATIN 40 MG TABLET PO SCH (21:07)
[2016-10-05] MEDS: ENOXAPARIN 60 MG/0.6 ML SYRINGE SUBCUT SCH ×2 (03:40→15:33)
--- NOTE | 2016-10-05 08:45 | Event Note ---
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 She does have bowel both valves and thus her anticoagulation is critical. Still feel the most appropriate course of action for her is to follow mesenteric aneurysm with CT angiogram and I think we can safely wait 6 months I will follow her at that time
[2016-10-05] MEDS: GABAPENTIN 300 MG CAPSULE PO SCH ×2 (09:23→15:33)
[2016-10-05] MEDS: levETIRAcetam 250 MG TABLET PO SCH (09:23)
[2016-10-05] MEDS: LOSARTAN 50 MG TABLET PO SCH (09:23)
[2016-10-05] MEDS: ETHAMBUTOL 400 MG TABLET PO SCH (09:23)
[2016-10-05] MEDS: amLODIPine 10 MG TABLET PO SCH (09:23)
[2016-10-05] MEDS: FERROUS SULFATE 325 MG TABLET PO SCH (09:24)
[2016-10-05] MEDS: AZITHROMYCIN 250 MG TABLET PO SCH (09:24)
[2016-10-05] MEDS: LEVOTHYROXINE 125 MCG TABLET PO SCH (09:24)
[2016-10-05] MEDS: RIFAMPIN 300 MG CAPSULE PO SCH (09:24)
[2016-10-05] MEDS: PANTOPRAZOLE 40 MG TABLET PO SCH (09:24)
[2016-10-05] MEDS: SODIUM CHLORIDE 1 GM TABLET PO SCH ×2 (09:24→15:33)
[2016-10-05 11:05] LABS: INR 2.6
[2016-10-05 11:06] LABS: PT Patient Result 29.4 SECS
--- NOTE | 2016-10-05 11:15 | Event Note ---
Patient is doing well, she is back on her anti-MAC therapy and tolerating them. Her INR has come down. Adjustments to the INR will have to be made with the patient being back on her MAC therapy. I can see the patient in the office when she gets discharged. Will sign off now. Call again as needed.
[2016-10-05 11:19] LABS: Calcium 7.7 MG/DL (8.5-10.1); Magnesium 1.6 MG/DL (1.8-2.4); Potassium 3.6 MMOL/L (3.5-5.1)
[2016-10-05 11:59] VITALS: BP 109/55
--- NOTE | 2016-10-05 12:22 | Discharge Summary ---
<Aman Negrete - Last Filed: 10/05/16 11:58> Hospital Course - Hospital Course Hospital Course: Mr. Sauceda is a 66-year-old black female patient with a history of recent abdomnial aortic aneurysm, hypertension, seizures, diabetes, status post aortic and mitral valve replacement, recurrent UTIs, and Mycobacterium avium that reported to the ED further evaluation of "thin blood". The patient had blood drawn at the [facility] and was told that her blood was too thin. The patient takes Coumadin and stated that she had been on an current increased dose for 1 week because her INR was too high. Patient had been diagnosed with Mycobacterium avium and is currently on 6 different antibiotics for that. INR was noted to be above 20. Pt. was admitted for further eval and treatment. Dr. Franklin with infection control was consulted to see patient as pt was known to her. Vascualr surgery and hematology were also ask to see patient. Pt. was treated for hypokalemia and hyponatremia during her stay. Recommendations by ID were to continue the medication for her infection: azithromycin 500 mg daily, ethambutol 800 mg daily, and rifampin 600 mg daily. The plan is for the patient to continue therapy for 12 months after the last positive sputum sample from [facility]. Vascular also evaluated patient. 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 Recommendations were to f/u as her mesenteric aneurysm did not need to be acutely addressed. Pt. is stable today and can be discharged home to follow up with both ID and Surgery. Discharge Plan - Discharge Data Disposition: Disch To Home/Self Care - Discharge Medications New Azithromycin Tab [Zithromax Tab] 500 mg PO DAILY #60 tablet Enoxaparin [Lovenox] 60 mg SUBCUT Q12H #4 syringe Continue levETIRAcetam TAB [Keppra Tab] 250 mg PO BID Omeprazole [Prilosec] 20 mg PO DAILY Gabapentin Cap/Tab [Neurontin Cap/Tab] 300 mg PO TID Cilostazol [Pletal] 100 mg PO BID Ergocalciferol (Vitamin D2) [Vitamin D2] 50,000 unit PO FR Aspirin EC Tab 81 mg PO DAILY amLODIPine [Norvasc] 10 mg PO DAILY Levothyroxine Tab [Synthroid Tab] 125 mcg PO DAILY Warfarin Sodium 10 mg PO SUTUTHSA Rifampin Cap [Rifadin Cap] 600 mg PO DAILY rOPINIRole [Requip] 1 mg PO BEDTIME Losartan Potassium 50 mg PO DAILY Ferrous Sulfate 325 mg PO BID Atorvastatin [Lipitor] 40 mg PO BEDTIME Potassium Chloride [Klor-Con M20] 20 meq PO DAILY Ethambutol HCl 1,200 mg PO DAILY hydroCHLOROthiazide [Hydrochlorothiazide] 25 mg PO DAILY Discontinued Meloxicam [Mobic] 7.5 mg PO DAILY Warfarin Sodium 2.5 mg PO MOWEFR - Follow Up or Referral - Forms/Instructions Exam - Constitutional Vitals: Period Temp Pulse Resp BP Sys/Gonzalez Pulse Ox Last 24 Hr 97.3 F-99.8 F 70-90 14-18 109-127/54-66 94-100 Discharge Results Labs on day of discharge: Labs from last 24 hours 10/05/16 10/05/16 10:27 10:27 INR 2.6 PT Patient/Control Mix 29.4 D Sodium 136 Potassium 3.6 Chloride 105 Carbon Dioxide 23 Anion Gap 11.6 BUN 10 Creatinine 0.70 GFR Calculation 89 BUN/Creatinine Ratio 14.00 Glucose 146 H Calculated Osmolality 273.0 Calcium 7.7 L Magnesium 1.6 L DS: Provider Date of admission: 10/02/16 13:12 Primary care physician: . No PCP Attending physician on admission: Mariela Shetty MD Consults: 10/02/16 15:30 Consult to Physician [CONS] Routine Comment: Consulting Provider: Charlotte Gayle Consult to Specialist Group: Infectious Disease When should Consulting Provider be notified: Now Person Notified: KOLBY Date Notified: 10/03/16 Time Notified: 09:44 Consult Notification Comment: 10/02/16 15:33 Consult to Physician [CONS] Routine Comment: On-call physician/Coumadin toxicity Consulting Provider: Saroj Daniel Consult to Specialist Group: Hematology When should Consulting Provider be notified: Now Person Notified: Akosua Date Notified: 10/03/16 Time Notified: 09:02 10/02/16 17:36 Consult to Dietitian [CONS] Routine Reason for Dietitian: Other Consult Comment: weight loss 10/02/16 19:23 Consult to Physician [CONS] Routine Comment: Consulting Provider: Jung Neil Person Notified: FRIEDA Date Notified: 10/03/16 Time Notified: 09:22 Discharging clinician: Aman Negrete NP <Nasir Barbour - Last Filed: 10/05/16 14:10> Diagnosis - Discharge Diagnosis (1) Atypical mycobacterial infection of lung Status: Acute (2) Hyponatremia Status: Acute (3) Hypokalemia Status: Acute (4) Coumadin toxicity Status: Acute (5) Moderate protein-calorie malnutrition Status: Acute (6) Superior mesenteric artery aneurysm Status: Acute Discharge Plan - Discharge Data Condition at Discharge: Stable Discharge Diet: advance to your usual diet Activity: resume usual activities as tolerated Weight Bearing at Discharge: weight bear as tolerated Contact your physician if you experience:: fever over 101, Shortness of breath, Bleeding, pain uncontrolled by pain medications Exam - Constitutional General appearance: normal weight - Head Head exam: Present: normocephalic, atraumatic - Eye Eye exam: Present: EOMI Pupils: Present: BETITO - ENT ENT exam: Present: normal exam - Neck Neck exam: Present: normal inspection - Respiratory Respiratory exam: Present: clear to auscultation bilaterally - Cardiovascular Cardiovascular exam: Present: regular rate and rhythm - GI/Abdominal GI/Abdominal exam: Present: normal bowel sounds - Extremities Exam Extremities exam: Present: full ROM, other (Left-sided AKA) - Back Exam Back exam: Present: normal inspection - Neurological Exam Neurological exam: Present: alert, oriented X3, CN II-XII intact - Psychiatric Psychiatric exam: Present: normal affect, normal mood - Skin Skin exam: Present: normal color, warm, dry
[2016-10-05] MEDS ORDERED: ERGOCALCIFEROL 50,000 UNIT CAPSULE PO SCH (16:17)
== END 2016-10-05 16:30 | disposition home or self-care (01) | DRG 948 ==
LOC: N.ED 10:34 → SUATTDRO 13:12 → N.EDINP 13:12 → N.5E 14:34
PROVIDERS: ADMIT Internal Medicine; ATTEND Internal Medicine Infectious Disease